=== PATIENT | female | born 1960 | race Asian ===

== ENCOUNTER 2023-07-07 10:28 | Emergency (ER) | payer MEDICAID ==
[~2023-07-07] VITALS: Ht 154.9 cm; Wt 49.9 kg
[2023-07-07 10:35] VITALS: BP 126/74; PULSE 90; RESP 17; TEMP 97; O2SAT 100
[2023-07-07 11:12] LABS: BASOPHILS % (AUTO) 0.9 % (0.0-2.0); EOSINOPHILS # (AUTO) 0.1 K/uL (0-0.4); EOSINOPHILS % (AUTO) 1.6 % (0.0-4.0); HEMATOCRIT 38.1 % (36-48); HEMOGLOBIN 12.9 g/dL (12.0-16.0); LYMPHOCYTES # (AUTO) 1.4 K/uL (2.5-16.5); LYMPHOCYTES % (AUTO) 34.1 % (20.5-51.1); MEAN CORPUSCULAR HEMOGLOBIN 32 pg (27-31); MEAN CORPUSCULAR HGB CONC 34 g/dL (33-37); MEAN CORPUSCULAR VOLUME 95.3 fL (80-94); MONOCYTES # (AUTO) 0.2 K/uL (0.8-1.0); MONOCYTES % (AUTO) 5.4 % (1.7-9.3); NEUTROPHILS # (AUTO) 2.4 K/uL (1.8-7.7); PLATELET COUNT (AUTO) 250 K/uL (140-450); RED CELL DISTRIBUTION WIDTH 13.7 % (11.6-13.7); WHITE BLOOD COUNT (AUTO) 4.2 K/uL (4.8-10.8)
[2023-07-07 11:33] LABS: ALBUMIN 3.7 g/dL (3.4-5.0); ANION GAP 9.2 (8-16); CALCIUM 8.5 mg/dL (8.5-10.1); CARBON DIOXIDE 29.9 mmol/L (21-32); CREATININE 0.5 mg/dL (0.6-1.3); POTASSIUM 3.1 mmol/L (3.5-5.1); TOTAL BILIRUBIN 0.6 mg/dL (0.0-1.0); TOTAL PROTEIN, SERUM 6.9 g/dL (6.4-8.2)
[2023-07-07] MEDS ORDERED: NACL 0.9% 1,000 ML IV ONE (11:40)
[2023-07-07] MEDS ORDERED: ONDANSETRON 4 MG/2 ML VIAL IVP ONE (11:40)
[2023-07-07 12:26] VITALS: BP 138/81; PULSE 64; RESP 16; O2SAT 100
[2023-07-07 12:28] LABS: INR 0.96 (0.8-1.2); PROTHROMBIN TIME 10.1 secs (10.8-13.4)
[2023-07-07 12:39] LABS: LIPASE 57 U/L (73-393)
[2023-07-07] MEDS ORDERED: ONDA-188 PO (14:16)
[2023-07-07] MEDS ORDERED: FAMO-92 PO (14:16)
== END 2023-07-07 14:34 | disposition home or self-care (01) ==
LOC: MED 10:28
DX: R10.9 Unspecified abdominal pain (principal); R11.10 Vomiting, unspecified; R42 Dizziness and giddiness; R53.1 Weakness
CPT/HCPCS: 36415; 71045; 74176; 80053; 82948; 83690; 84484; 85025; 85610; 85730; 86886; 86900; 86901; 93005; 96361; 96374; 99285; J2405; J7030